=== PATIENT | female | born 1970 | race Caucasian/White ===

== ENCOUNTER 2017-07-22 09:19 | Emergency (ER) | payer BC ==
[2017-07-22] MEDS: oxyCODONE/APAP 5/325 1 TAB TABLET PO (11:43)
== END 2017-07-22 13:03 | disposition home or self-care (01) ==
LOC: ER 09:19
DX: M79.671 Pain in right foot (principal); F17.200 Nicotine dependence, unspecified, uncomplicated
CPT/HCPCS: 93923; 93971; 99284-25